=== PATIENT | female | born 1970 | race African-American/Black ===

== ENCOUNTER 2020-08-21 00:44 | Emergency (ER) | payer MEDICAID ==
[~2020-08-21] VITALS: Ht 170.2 cm; Wt 73.0 kg
[2020-08-21] MEDS ORDERED: IBUPROFEN 600MG TABLET PO STA (01:49)
[2020-08-21] MEDS ORDERED: CYCL5TAB PO (02:00)
[2020-08-21] MEDS ORDERED: IBUP-2029 PO (02:00)
[2020-08-21 02:49] VITALS: BP 131/79
== END 2020-08-21 04:00 | disposition home or self-care (01) ==
LOC: ER 00:51
DX: S16.1XXA Strain of muscle, fascia and tendon at neck level, initial encounter (principal); M54.5 Low back pain; V43.52XA Car driver injured in collision with other type car in traffic accident, initial encounter; Y93.89 Activity, other specified; Y92.89 Other specified places as the place of occurrence of the external cause; Y99.8 Other external cause status
CPT/HCPCS: 99282